=== PATIENT | male | born 1960 | race Caucasian/White ===

== ENCOUNTER 2025-02-07 05:33 | Inpatient (IN) ==
--- NOTE | 2025-02-01 12:07 | Anesthesiology Consultation ---
Date of Service February 01, 2025 Assessment & Plan (1) Encounter for pre-operative examination: Infectious disease screening: Per assessment on 02/01/25- No known recent infectious disease contacts or current infectious disease symptoms. Chart Review Chart Review: Acceptable Risk for Surgery and Patient NOT seen in Pre Admission Testing History Surgery Operation Date: 02/07/25 07:00 Proposed Procedures p TURP (Transurethral Resection of Prostate) - Rogelio Nolan MD Height/Weight Height: 6 ft Weight: 111.13 kg Allergies Allergy/AdvReac Type Severity Reaction Status Date / Time No Known Drug Allergies Allergy Verified 02/01/25 08:11 Medications Home Medications Medication Instructions Recorded Confirmed Last Taken aspirin 81 mg tablet,delayed 81 mg PO QAM 06/04/22 02/01/25 Unknown release (Adult Aspirin Regimen) atorvastatin 20 mg tablet 20 mg PO HS 06/04/22 02/01/25 Unknown carvedilol 6.25 mg tablet 6.25 mg PO BID 06/04/22 02/01/25 Unknown cholecalciferol (vitamin D3) 25 25 mcg PO DAILY 06/04/22 02/01/25 Unknown mcg (1,000 unit) capsule lisinopril 40 mg tablet 40 mg PO QAM 06/04/22 02/01/25 Unknown multivitamin 1 tab PO QAM 06/04/22 02/01/25 Unknown omega-3 fatty acids 1,000 mg 1,000 mg PO DAILY 06/04/22 02/01/25 Unknown capsule omeprazole 20 mg capsule,delayed 20 mg PO QPM 06/04/22 02/01/25 Unknown release levothyroxine 50 mcg tablet 50 mcg PO DAILYBB 01/15/25 02/01/25 Unknown loratadine 10 mg tablet 10 mg PO QAM 02/01/25 02/01/25 Unknown Past Medical History Medical History Aortic valve stenosis with insufficiency Echo 03/2024: Mild to moderate eccentric AI. Mild aortic stenosis (MG ~18mmhg, DVI 0.34) Arthritis BPH (benign prostatic hyperplasia) Elevated PSA Rhoades catheter present Inserted 01/15/25 GERD (gastroesophageal reflux disease) Hypercholesterolemia Hypertension Hypothyroidism Sleep apnea CPAP Past Family History Family History Father Diabetes Grandmother (Paternal) Cancer Colon Other No family history of adverse response to anesthesia Past Surgical History Surgical History History of colonoscopy No pertinent past surgical history Social History Smoking Status: Former smoker Do You Dip or Chew Tobacco: No (25+ years ago) Smoking End Date: 25+ years ago Hx Alcohol Use: Yes Alcohol type: beer alcohol intake frequency: holidays/special occasions only Hx Substance Use: No substance use type: does not use Lab Results Anesthesia Preop Results Results Anesthesia Widget: WBC 10.37 K/ul (4.8-10.8) 01/31/25 Hgb 15.6 g/dl (14.0-18.0) 01/31/25 Hct 46.1 % (42.0-52.0) 01/31/25 Plt 327 K/uL (130-400) 01/31/25 Na 140 mmol/L (136-145) 01/31/25 K 4.4 mmol/L (3.5-5.1) 01/31/25 Cl 106 mmol/L (98-107) 01/31/25 CO2 30 mmol/L (21-32) 01/31/25 BUN 16 mg/dl (6-23) 01/31/25 Creat 0.93 mg/dl (0.6-1.4) 01/31/25 Glucose Level 82 mg/dl (70-99(Fasting)) 01/31/25 Urine Color Yellow 01/15/25 Urine Appearance Clear (Clear) 01/15/25 Urine pH 5.5 (4.5-7.5) 01/15/25 Urine Specific [place] 1.006 (1.000-1.030) 01/15/25 Urine Protein Negative (Negative) 01/15/25 Urine Glucose (UA) Negative (Negative) 01/15/25 Urine Ketones Negative (Negative) 01/15/25 Urine Blood 2+ (Negative) H 01/15/25 Urine Nitrite Negative (Negative) 01/15/25 Urine Bilirubin Negative (Negative) 01/15/25 Urine Urobilinogen Negative (Negative) 01/15/25 Urine Leukocyte Esterase Negative (Negative) 01/15/25 Urine WBC (Auto) 0-5 /hpf (0-5) 01/15/25 Urine RBC (Auto) 0-2 /hpf (0-2) 01/15/25 Urine Hyaline Casts (Auto) 0-2 /lpf (0-2) 01/15/25 Urine Epithelial Cells (Auto) 0-2 /hpf (0-2) 01/15/25 Urine Bacteria (Auto) None Seen (None Seen) 01/15/25 Testing Laboratory Results Urine culture (01/31/25): pending Electrocardiogram Date: 01/31/25 Findings: + NSR @ (74) Chest X-Ray Date: 01/31/25 Findings: + NAD Echocardiogram Date: 03/23/24 EF 55%. Mild to moderate eccentric AI. Mild aortic stenosis (MG ~18mmhg, DVI 0.34). Ascending aorta 3.9cm, measured distal to the ST junction. Stress Test Date: 08/29/21 Type: nuclear Lexiscan stress EKG is not indicative of ischemia. Small fixed defect at the apex in keeping with normal apical thinning. No reversible defects. No ischemia or infarction. EF 57%.
[2025-02-07] MEDS: LR 15ML/HR IV SCH (06:11)
[2025-02-07] MEDS ORDERED: PROPOFOL IV EMULSION 10 MG/ML 20 ML VIAL IV ONE (06:35)
[2025-02-07] MEDS ORDERED: ONDANSETRON INJ 2 MG/ML 2 ML VIAL ONE (06:35)
[2025-02-07] MEDS ORDERED: DEXAMETHASONE SOD INJ 4 MG/ML VIAL ONE (06:35)
[2025-02-07] MEDS ORDERED: LIDOCAINE 2% 2 ML VIAL/AMP(20MG/ML) INFIL ONE (06:35)
[2025-02-07] MEDS ORDERED: MIDAZOLAM HCL 1 MG/ML 2ML VIAL ONE (06:36)
[2025-02-07] MEDS ORDERED: fentaNYL citrate PF 100 MCG/2 ML VIAL ONE ×3 (06:36→08:21)
--- NOTE | 2025-02-07 06:51 | History & Physical Bridge Note ---
Date of Service February 07, 2025 History & Physical Bridge Note I have examined the patient, reviewed the History & Physical and in the interval since the performance of the History & Physical I have noted the following changes of clinical significance: no changes noted
[2025-02-07] MEDS ORDERED: fentaNYL citrate PF 100 MCG/2 ML VIAL IV PRN (06:57)
[2025-02-07] MEDS ORDERED: ePHEDrine sulfate 50 MG/ML AMP IV PRN (06:57)
[2025-02-07] MEDS ORDERED: ATROPINE SULFATE 0.1 MG/ML 10ML SYR IV PRN (06:57)
[2025-02-07] MEDS ORDERED: PROMETHAZINE HCL 6.25 MG in SODIUM CHLORIDE 0.9% 50 ML IV PRN (06:57)
[2025-02-07] MEDS ORDERED: ONDANSETRON INJ 2 MG/ML 2 ML VIAL IV PRN ×2 (06:57→10:38)
[2025-02-07] MEDS: ceFAZolin 2000MG 2,000 MG/15 ML SYR IV SCH ×3 (06:59→15:23)
--- NOTE | 2025-02-07 09:04 | Operative Report ---
[facility] Post Operative Report Pre & Post Diagnosis Operation Date: 02/07/25 07:00 Pre-Op Diagnosis: Benign Prostatic Hypertrophy with Lower Urinary Tract Symptoms Post-Op Diagnosis: Benign Prostatic Hypertrophy with Lower Urinary Tract Symptoms I identified the patient and participated in the time-out.: Yes Procedure Operation Date: 02/07/25 07:00 Actual Procedures p Transurethral Resection of Prostate(Not Applicable) - Rogelio Nolan MD Surgeon Rogelio Nolan MD Dental Laboratory Supervisor None Estimated Blood Loss 0 Findings See Below Trilobar hyperplasia and roughly 3-1/2 cm prostate. Channel hemostatic and open end of case. Ureteral orifices uninvolved Specimens Prostate chips Drains 24 Filipino three-way catheter with 30 cc in balloon Anesthesia Type General Complications none Indications 64-year-old male with a large prostate who recently went to urinary retention. His best option would be referral for simple prostatectomy or HoLEP but he did not want to wait several months for this to occur and so I offered him a TURP with the caveat that he may need another procedure in the future. He agreed to a TURP. Preoperative urine culture was positive due to colonization he was appropriately treated. Description of Procedure After informed consent was obtained, the patient was transported to the operative suite. General anesthesia was induced. They were placed in dorsal lithotomy position and prepped and draped in sterile fashion. They received preoperative Ancef based on preop urine culture. An appropriate surgical timeout was performed. The penile urethra was sequentially dilated from 20-30 Filipino. 27 Filipino resectoscope was inserted. Daniel cystoscopy revealed no lesions. The ureteral orifices near the bladder neck so care were taken to avoid these. I started with the median lobe and carefully pulled this back into the prostatic fossa with the loop and then resected this down to the bladder neck. I then moved to the 5 o'clock position of the prostate and resected this down to just distal to the verumontanum. I then moved over to the 7 o'clock position of the prostate and resected this down to just distal to the verumontanum. His channel was open at the conclusion of the case. Hemostasis was achieved. I evacuated the prostate chips out via the scope. Ureteral orifices were uninvolved and the resection. Total operative time was roughly 1 hour and 40 minutes. The resectoscope was removed. The 24 Filipino three-way catheter was inserted with return of clear urine. The bladder was irrigated with a Stephanie syringe. The balloon was inflated with 30 cc of sterile water. This concluded the end of the case. All counts were correct at the end of the case. I was present scrubbed and actively participated for the entire to the procedure. I attest to the content of the Intraoperative Record and any orders documented therein. Any exceptions are noted below.
--- NOTE | 2025-02-07 10:24 | Anesthesiology Progress Note ---
Date of Service February 07, 2025 Anesthesia Post Procedure Vital Signs Vital Signs: Temp Pulse Pulse Resp BP Pulse Ox O2 Del Method 02/07/25 09:55 36.5 C 65 16 141/92 H 96 Room Air 02/07/25 09:40 68 15 143/93 H 98 Room Air 02/07/25 09:30 71 12 146/96 H 97 Room Air 02/07/25 09:20 72 12 139/94 100 Oxymask 02/07/25 09:12 36.0 C L 77 14 132/91 96 Oxymask 02/07/25 05:56 36.6 C 70 18 130/89 98 Room Air O2 Flow Rate 02/07/25 09:55 0 02/07/25 09:40 0 02/07/25 09:30 0 02/07/25 09:20 4 02/07/25 09:12 12 02/07/25 05:56 Pain Intensity Back: Pain Intensity: 4 Transfer of Care Handoff Completed per policy Notes Mental Status: alert / awake / arousable Patient Amnestic to Procedure: Yes Nausea / Vomiting: adequately controlled Pain: adequately controlled Airway Patency, RR, SpO2: stable & adequate BP & HR: stable & adequate Hydration State: stable & adequate Anesthetic Complications: no major complications apparent
[2025-02-07] MEDS ORDERED: IBUPROFEN 600 MG TAB PO PRN (10:38)
[2025-02-07] MEDS ORDERED: ACETAMINOPHEN 500 MG TAB PO PRN (10:38)
[2025-02-07] MEDS: oxyCODONE HCL IR 5 MG TAB (IMMEDIATE RELEASE) PO PRN (10:50)
[2025-02-07] MEDS: oxyBUTYnin chloride 5 MG TAB PO SCH (13:25)
[2025-02-07] MEDS: carvediloL 6.25 MG TAB PO SCH (21:02)
[2025-02-07] MEDS: ATORVASTATIN 20 MG TAB PO SCH (21:02)
[2025-02-07] MEDS: PANTOprazole 40 MG TAB PO SCH (21:03)
[2025-02-08] MEDS: LEVOTHYROXINE SODIUM 50 MCG TABLET PO SCH (06:40)
--- NOTE | 2025-02-08 07:19 | Urology Progress Note ---
Date of Service February 08, 2025 Assessment & Plan (1) BPH with urinary obstruction: Plan 64-year-old male status post TURP on 02/07/2025. He has a very large prostate and he was monitored overnight to ensure his catheter did not clog off. No issues overnight. CBI clamped. Will have patient ambulate and monitor urine color. If remains relatively clear, DC later today Patient already has prescription for oxycodone and oxybutynin He will finish his antibiotics previously prescribed Message has been sent for Rhoades catheter removal this following Friday Admission and Anticipated Discharge Date Admission Date: February 07, 2025 Subjective No acute issues overnight. Currently afebrile with stable vitals. No issues with catheter clogging. Physical Exam Physical Exam: General: Alert and oriented, no acute distress HEENT: Normocephalic, mucous membranes moist Pulmonary: Nonlabored respirations Abdomen: Nondistended : 24 Bengali three-way catheter draining clear urine on moderate CBI Extremities: Moves all 4 spontaneously Neuro: No gross deficits Skin: Warm, dry, no rashes noted Results & Data Vital Signs (Past 12 Hours) Vital Signs Temp Pulse Resp BP Pulse Ox O2 Del Method 02/08/25 04:58 36.6 C 69 17 122/76 98 Room Air 02/07/25 23:05 36.7 C 92 H 19 125/84 96 CPAP 02/07/25 20:32 Room Air, CPAP 02/07/25 20:32 36.6 C 102 H 16 138/88 96 Room Air 02/07/25 19:13 36.7 C 103 H 18 143/95 H 95 Room Air PG Care Time/CCT Total # of Minutes Spent Total Time Spent with Patient: Total time spent is greater than 50% in coordination of care (as documented) at patient's floor/unit and/or counseling patient: Coding Level of Care Code 68684 SUB INP/OBS CARE 2/35MIN Diagnoses BPH with urinary obstruction N40.1; N13.8
--- NOTE | 2025-02-08 07:24 | Discharge Summary ---
Date of Service February 08, 2025 Admission HPI Per Admitting Provider 64-year-old male with BPH and urinary retention who presented for a TURP Admission Exam Per Admitting Provider General: Alert and oriented, no acute distress HEENT: Normocephalic, mucous membranes moist Pulmonary: Nonlabored respirations Abdomen: Nondistended : Rhoades catheter draining clear urine. Extremities: Moves all 4 spontaneously Neuro: No gross deficits Skin: Warm, dry, no rashes noted Principal Diagnosis BPH with urinary retention Discharge Exam General: Alert and oriented, no acute distress HEENT: Normocephalic, mucous membranes moist Pulmonary: Nonlabored respirations Abdomen: Nondistended : 24 Zimbabwean three-way catheter draining light red urine. Extremities: Moves all 4 spontaneously Neuro: No gross deficits Skin: Warm, dry, no rashes noted Discharge Data Allergies Allergy/AdvReac Type Severity Reaction Status Date / Time No Known Drug Allergies Allergy Verified 02/07/25 05:52 Procedures Performed Operation Date: 02/07/25 07:00 Actual Procedures p Transurethral Resection of Prostate(Not Applicable) - Rogelio Nolan MD Hospital Course (1) BPH with urinary obstruction: Plan Patient underwent TURP on 02/07/2025. He had a very large prostate so was monitored overnight for hematuria purposes. CBI was clamped this morning and urine remained relatively clear in the afternoon and he was discharged home. Total Time Total Time Spent Total Time Spent (In Minutes): 10 Discharge Plan Discharge Items Patient Disposition: Home - Self-Care Reason For Visit: BPH with Lower Urinary Tract Symptoms, Other Obstr Discharge Diagnosis: BPH with obstruction Activity: Resume your previous activity Non-emergency contact: Urologist Call non-emergency contact if: you have any medication questions Follow-up/Referrals: Iris Rome, P.A. [Primary Care Provider] - Rogelio Nolan MD [Physician] - [facility],Nurse [FAKE FOR SCHEDULES] - 02/14/25 9:00 am Diet: Regular Addtl Attending Provider Instructions: -Continue your home medications unless changes listed below. -Nursing will show you how to take care of your catheter. -Take Ditropan as needed for Rhoades catheter discomfort. This can cause dry eyes, dry mouth, blurry vision and constipation. If you are not experiencing discomfort from the catheter, you do not need to take this. -MiraLAX [id number] as needed for constipation -Continue your previous diet. -Call the office at [phone] if your Rhoades catheter is not draining or you have fevers greater than 101 F -You will get called regarding a visit to have your catheter removed and to ensure you can urinate. Pending Studies at Discharge: No Stand-Alone Forms: My [facility] Medications and DC Order Prescriptions: New oxycodone 5 mg tablet 5 mg PO Q6H PRN (Reason: pain) Qty: 7 0RF oxybutynin chloride 5 mg tablet extended release 24hr 5 mg PO DAILY Qty: 7 0RF Continued sulfamethoxazole-trimethoprim [Bactrim DS] 800-160 mg tablet 1 tab PO BID Qty: 14 0RF atorvastatin 20 mg tablet 20 mg PO HS carvedilol 6.25 mg tablet 6.25 mg PO BID Rx Instructions: must administer with a meal/food lisinopril 40 mg tablet 40 mg PO DAILY omeprazole 20 mg capsule,delayed release(DR/EC) 20 mg PO QPM omega-3 fatty acids 1,000 mg capsule 1,000 mg PO DAILY cholecalciferol (vitamin D3) 25 mcg (1,000 unit) capsule 25 mcg PO DAILY multivitamin Tablet 1 tab PO QAM aspirin [Adult Aspirin Regimen] 81 mg tablet,delayed release (DR/EC) 81 mg PO QAM levothyroxine 50 mcg tablet 50 mcg PO DAILYBB loratadine 10 mg Tablet 10 mg PO QAM Discharge Orders: Discharge Order (Routine); Ordered 02/08/25 Ordered By: Iris Stephens Admission Data Admit Date/Time: 02/07/25 10:38 Attending Provider: Rogelio Nolan Admit Provider: Rogelio Nolan Primary Care Provider: Iris Rome Other Interventions: Discharge Summary Assessment (RN) Last Done: 02/08/25 13:40 Coding Level of Care Code 60344 IN/OBS DISCH 30 MIN/LESS Diagnoses BPH with urinary obstruction N40.1; N13.8
[2025-02-08 07:33] VITALS: RESP 16
[2025-02-08] MEDS: ASPIRIN 81 MG ECTAB PO SCH (07:36)
[2025-02-08] MEDS: CHOLECALCIFEROL 25 MCG (1000 UNITS) TAB PO SCH (08:18)
[2025-02-08] MEDS: LORATADINE 10 MG TAB PO SCH (08:18)
[2025-02-08] MEDS: lisinopril 40 MG TAB PO SCH (08:18)
[2025-02-08 11:12] VITALS: BP 117/74; PULSE 64; TEMP 97.7; O2SAT 97
== END 2025-02-08 14:56 | disposition home or self-care (01) | DRG 714 ==
LOC: ASU 05:33 → OBSVTOIN 10:38 → INTOOBSV 10:38 → 3N 10:38